=== PATIENT | female | born 1985 | race African-American/Black ===

== ENCOUNTER 2017-12-30 22:25 | Emergency (ER) | payer SELFPAY ==
[~2017-12-30] VITALS: Ht 177.8 cm; Wt 150.4 kg
[~2017-12-30 22:25] MED LIST: AMOXICILLIN500 MG PO; AMOXIL500 MG OR; AUGMENTIN875TAB OR; BACTRIM DS1 TAB PO; DOXYCYCL HYC100 M4 PO; FLEXERIL OR; FLEXERIL10 MG PO; HYDROCO/APAP1 TA9 PO; LORTAB 10 PO; NAPROSYN500 MG PO; NO MEDS; PROVENTIL IN; SUDAFED30 MG OR; ULTRAM50 M1 OR
[2017-12-30] MEDS ORDERED: GENTAMICIN0.3 % OU (23:34)
[2017-12-30 23:41] VITALS: BP 148/91
== END 2017-12-30 23:49 | disposition home or self-care (01) | DRG 125 ==
LOC: ED 22:25
DX: H10.9 Unspecified conjunctivitis (principal); F17.290 Nicotine dependence, other tobacco product, uncomplicated; J45.909 Unspecified asthma, uncomplicated

== ENCOUNTER 2019-05-20 06:03 | Emergency (ER) | payer SELFPAY ==
[~2019-05-20] VITALS: Ht 177.8 cm; Wt 141.4 kg
[~2019-05-20 06:03] MED LIST changes: +GENTAMICIN0.3 % OU
[2019-05-20] MEDS ORDERED: ZITHROMAX250 MG PO (06:28)
[2019-05-20 06:46] VITALS: BP 187/88
== END 2019-05-20 06:39 | disposition home or self-care (01) | DRG 203 ==
LOC: ED 06:03
DX: J20.9 Acute bronchitis, unspecified (principal); J02.9 Acute pharyngitis, unspecified; R05 Cough; F17.290 Nicotine dependence, other tobacco product, uncomplicated; R09.81 Nasal congestion

== ENCOUNTER 2020-11-12 21:05 | Emergency (ER) | payer SELFPAY ==
[~2020-11-12] VITALS: Ht 177.8 cm; Wt 144.0 kg
[~2020-11-12 21:05] MED LIST changes: +ZITHROMAX250 MG PO
[2020-11-12] MEDS ORDERED: OPCON-A OD (21:54)
[2020-11-12 22:25] VITALS: BP 144/87
== END 2020-11-12 22:25 | disposition home or self-care (01) | DRG 125 ==
LOC: ED 21:05
DX: S05.11XA Contusion of eyeball and orbital tissues, right eye, initial encounter (principal); H54.61 Unqualified visual loss, right eye, normal vision left eye; J45.909 Unspecified asthma, uncomplicated; F17.200 Nicotine dependence, unspecified, uncomplicated; Y04.2XXA Assault by strike against or bumped into by another person, initial encounter

== ENCOUNTER 2021-02-17 12:53 | Emergency (ER) | payer SELFPAY ==
[~2021-02-17] VITALS: Ht 177.8 cm; Wt 141.3 kg
[~2021-02-17 12:53] MED LIST changes: +OPCON-A OD
[2021-02-17 14:59] VITALS: BP 149/87
[2021-02-17] MEDS ORDERED: ALBUTEROL108 MCG/AC PO (15:02)
[2021-02-17] MEDS ORDERED: TESSALON PERLE100 MG PO (15:02)
== END 2021-02-17 15:10 | disposition home or self-care (01) | DRG 153 ==
LOC: ED 12:53
DX: J06.9 Acute upper respiratory infection, unspecified (principal); J45.909 Unspecified asthma, uncomplicated; F17.200 Nicotine dependence, unspecified, uncomplicated; Z20.822 Contact with and (suspected) exposure to COVID-19

== ENCOUNTER 2021-03-05 13:17 | Emergency (ER) | payer SELFPAY ==
[~2021-03-05] VITALS: Ht 177.8 cm; Wt 144.5 kg
[~2021-03-05 13:17] MED LIST changes: +ALBUTEROL108 MCG/AC PO; +TESSALON PERLE100 MG PO
[2021-03-05 14:08] LABS: HEMATOCRIT 37.8 % (37.0-47.0); IMMATURE GRANULOCYTES 0.4 % (0.0-5.0); MEAN CELL VOLUME 79.7 fL CALC (80.0-100.0); MEAN CORPUSCULAR HGB 23.2 pG CALC (26.0-32.0); MEAN CORPUSCULAR HGB CONC 29.1 g/dL CAL (32.0-36.0); NEUT# 4.98 thou/uL (2.00-7.15); RED BLOOD COUNT 4.74 mill/uL (4.20-5.60); RED CELL DISTRI WIDTH 16.5 % (11.5-15.5)
[2021-03-05 14:09] LABS: URINE BILIRUBIN - DIPSTICK NEGATIVE (NEGATIVE); URINE BLOOD DIPSTICK LARGE (NEGATIVE); URINE COLOR YELLOW; URINE GLUCOSE - DIPSTICK NEGATIVE (NEGATIVE); URINE KETONE NEGATIVE (NEGATIVE); URINE PH 5.5 (4.5-8.0); URINE PROTEIN - DIPSTICK 30 mg/dL (NEG-TRACE); URINE SPECIFIC GRAVITY >=1.030; URINE UROBILINOGEN - DIPSTICK 0.2 E.U./dL (0.2)
[2021-03-05 14:16] LABS: URINE LEUK ESTERASE SMALL (NEGATIVE); URINE NITRITE - DIPSTICK NEGATIVE (Negative)
[2021-03-05 14:17] LABS: URINE BACTERIA FEW hpf; URINE EPITHELIAL CELLS MODERATE EPI/hpf (0-FEW); URINE MUCUS MODERATE hpf (NONE-FEW); URINE RBC 25-50 RBC/hpf (0-5)
[2021-03-05 14:24] LABS: ALBUMIN 3.9 g/dL (3.2-5.0); ALKALINE PHOSPHATASE 88 u/l (38-126); ANION GAP 10 (6-22 (CALC)); BILIRUBIN, TOTAL 0.6 mg/dL (0.0-1.4); BUN 11 mg/dL (7-17); BUN/CREATININE RATIO 14 (12-20 (CALC)); CARBON DIOXIDE 24 mmol/l (22-30); CHLORIDE 107 mmol/l (95-108); CREATININE 0.8 mg/dL (0.5-1.0); GFR > 60 ML/MIN (>=60 (CALC)); GFR FOR AFR.AMER. > 60 ML/MIN (>=60 (CALC)); POTASSIUM 4.2 mmol/l (3.5-5.1); SGOT/AST 32 u/l (14-36); SODIUM 137 mmol/l (137-146); TOTAL PROTEIN 8.1 g/dL (6.3-8.2)
[2021-03-05] MEDS ORDERED: NEBULIZE1 IN (15:16)
[2021-03-05] MEDS ORDERED: ALBUTEROL SULFA0.51 IN (15:16)
[2021-03-05] MEDS ORDERED: MEDDOSEPAK PO (15:16)
[2021-03-05 15:22] VITALS: BP 125/74
== END 2021-03-05 15:29 | disposition home or self-care (01) | DRG 153 ==
LOC: ED 13:17
DX: J06.9 Acute upper respiratory infection, unspecified (principal); J45.909 Unspecified asthma, uncomplicated; F17.290 Nicotine dependence, other tobacco product, uncomplicated; Z20.822 Contact with and (suspected) exposure to COVID-19

== ENCOUNTER 2021-07-16 13:53 | Emergency (ER) | payer BC, OTHER ==
[~2021-07-16] VITALS: Ht 177.8 cm; Wt 138.3 kg
[~2021-07-16 13:53] MED LIST changes: +ALBUTEROL SULFA0.51 IN; +MEDDOSEPAK PO; +NEBULIZE1 IN
[2021-07-16] MEDS ORDERED: FEROSUL325 MG PO (14:52)
[2021-07-16] MEDS ORDERED: ALBUTEROL108 MCG/AC PO (14:53)
[2021-07-16 16:30] VITALS: BP 149/74
== END 2021-07-16 16:30 | disposition home or self-care (01) | DRG 605 ==
LOC: ED 13:53
DX: S40.011A Contusion of right shoulder, initial encounter (principal); J45.909 Unspecified asthma, uncomplicated; F17.200 Nicotine dependence, unspecified, uncomplicated; W18.2XXA Fall in (into) shower or empty bathtub, initial encounter; Y93.E1 Activity, personal bathing and showering; Y92.002 Bathroom of unspecified non-institutional (private) residence as the place of occurrence of the external cause; Z98.890 Other specified postprocedural states

== ENCOUNTER 2021-08-31 02:28 | Emergency (ER) | payer BC, OTHER ==
[~2021-08-31] VITALS: Ht 177.8 cm; Wt 138.0 kg
[~2021-08-31 02:28] MED LIST changes: +FEROSUL325 MG PO
[2021-08-31] MEDS ORDERED: CORTISPORIN OTI10 M2 AS (03:46)
== END 2021-08-31 04:05 | disposition home or self-care (01) | DRG 156 ==
LOC: ED 02:28
PROC: 09C4XZZ Extirpation of Matter from Left External Auditory Canal, External Approach (ICD-10-PCS; principal; 2021-08-31)
DX: T16.2XXA Foreign body in left ear, initial encounter (principal); J45.909 Unspecified asthma, uncomplicated; F17.200 Nicotine dependence, unspecified, uncomplicated; X58.XXXA Exposure to other specified factors, initial encounter

== ENCOUNTER 2021-12-05 22:18 | Emergency (ER) | payer BC, OTHER ==
[~2021-12-05] VITALS: Ht 177.8 cm; Wt 139.0 kg
[~2021-12-05 22:18] MED LIST changes: +CORTISPORIN OTI10 M2 AS
[2021-12-05 22:35] VITALS: BP 178/88
[2021-12-05] MEDS ORDERED: DUREZOL0.05 % OP (22:45)
[2021-12-05] MEDS ORDERED: ALBUTERO2 XX (22:45)
[2021-12-05] MEDS ORDERED: SIMBRINZA1 SUS (22:46)
[2021-12-05] MEDS ORDERED: CIPROFLOXACN0.3 % OP (22:46)
[2021-12-05 23:05] VITALS: BP 169/89
[2021-12-05 23:16] LABS: IMMATURE GRANULOCYTES 0.2 % (0.0-5.0); MEAN CELL VOLUME 84.1 fL CALC (80.0-100.0); MEAN CORPUSCULAR HGB 24.5 pG CALC (26.0-32.0); MEAN CORPUSCULAR HGB CONC 29.1 g/dL CAL (32.0-36.0); NEUT# 7.65 thou/uL (2.00-7.15); RED BLOOD COUNT 3.47 mill/uL (4.20-5.60); RED CELL DISTRI WIDTH 14.7 % (11.5-15.5)
[2021-12-05 23:18] LABS: URINE BILIRUBIN - DIPSTICK NEGATIVE (NEGATIVE); URINE BLOOD DIPSTICK LARGE (NEGATIVE); URINE COLOR YELLOW; URINE GLUCOSE - DIPSTICK NEGATIVE (NEGATIVE); URINE KETONE NEGATIVE (NEGATIVE); URINE LEUK ESTERASE NEGATIVE (NEGATIVE); URINE PH 5.5 (4.5-8.0); URINE PROTEIN - DIPSTICK NEGATIVE (NEG-TRACE); URINE SPECIFIC GRAVITY >=1.030; URINE UROBILINOGEN - DIPSTICK 0.2 E.U./dL (0.2)
[2021-12-05 23:22] LABS: URINE NITRITE - DIPSTICK NEGATIVE (Negative)
[2021-12-05 23:28] LABS: HEMATOCRIT 29.2 % (37.0-47.0); HEMOGLOBIN 8.5 g/dl (12.0-16.0)
[2021-12-05 23:30] VITALS: BP 174/103
[2021-12-05 23:34] LABS: ALBUMIN 3.5 g/dL (3.2-5.0); ALKALINE PHOSPHATASE 76 u/l (38-126); ANION GAP 13 (6-22 (CALC)); BUN 11 mg/dL (7-17); BUN/CREATININE RATIO 14 (12-20 (CALC)); CARBON DIOXIDE 22 mmol/l (22-30); CHLORIDE 111 mmol/l (95-108); CREATININE 0.8 mg/dL (0.5-1.0); GFR > 60 ML/MIN (>=60 (CALC)); GFR FOR AFR.AMER. > 60 ML/MIN (>=60 (CALC)); SGOT/AST 34 u/l (14-36); SODIUM 142 mmol/l (137-146); TOTAL PROTEIN 6.7 g/dL (6.3-8.2)
[2021-12-05 23:44] LABS: URINE CALCIUM OXALATE CRYSTALS MANY lpf; URINE MUCUS FEW hpf (NONE-FEW); URINE SQUAMOUS EPITHELIAL CELL FEW EPI/hpf (0-FEW)
[2021-12-05 23:45] LABS: BILIRUBIN, TOTAL 0.2 mg/dL (0.0-1.4)
[2021-12-06] VITALS: BP 150/74
[2021-12-06 00:05] LABS: TSH, 3RD GENERATION 1.19 uIU/mL (0.47 - 4.68)
[2021-12-06] MEDS ORDERED: CHROMAGEN1 CAP PO (00:29)
[2021-12-06 00:30] VITALS: BP 169/109
[2021-12-06 00:34] VITALS: BP 169/109
== END 2021-12-06 00:41 | disposition home or self-care (01) | DRG 812 ==
LOC: ED 22:18
PROVIDERS: Family Medicine
DX: D50.0 Iron deficiency anemia secondary to blood loss (chronic) (principal); J45.909 Unspecified asthma, uncomplicated; F17.200 Nicotine dependence, unspecified, uncomplicated; Z20.822 Contact with and (suspected) exposure to COVID-19

== ENCOUNTER 2022-01-09 01:54 | Emergency (ER) | payer OTHER, BC ==
[~2022-01-09] VITALS: Ht 177.8 cm; Wt 140.0 kg
[~2022-01-09 01:54] MED LIST changes: +ALBUTERO2 XX; +CHROMAGEN1 CAP PO; +CIPROFLOXACN0.3 % OP; +DUREZOL0.05 % OP; +SIMBRINZA1 SUS
[2022-01-09] MEDS ORDERED: NAPROXEN500 MG PO (03:17)
[2022-01-09 03:32] VITALS: BP 156/84
== END 2022-01-09 03:48 | disposition home or self-care (01) | DRG 563 ==
LOC: ED 01:54
DX: S83.012A Lateral subluxation of left patella, initial encounter (principal); S80.02XA Contusion of left knee, initial encounter; S70.02XA Contusion of left hip, initial encounter; S90.02XA Contusion of left ankle, initial encounter; J45.909 Unspecified asthma, uncomplicated; F17.200 Nicotine dependence, unspecified, uncomplicated; V03.90XA Pedestrian on foot injured in collision with car, pick-up truck or van, unspecified whether traffic or nontraffic accident, initial encounter
CPT/HCPCS: L1830

== ENCOUNTER 2022-01-11 11:30 | Emergency (ER) | payer OTHER, BC ==
[~2022-01-11] VITALS: Ht 177.8 cm; Wt 141.0 kg
[~2022-01-11 11:30] MED LIST changes: +NAPROXEN500 MG PO
[2022-01-11 11:45] VITALS: BP 142/85
[2022-01-11 12:35] LABS: HEMATOCRIT 30.2 % (37.0-47.0); HEMOGLOBIN 8.5 g/dl (12.0-16.0); MEAN CELL VOLUME 79.5 fL CALC (80.0-100.0); MEAN CORPUSCULAR HGB 22.4 pG CALC (26.0-32.0); MEAN CORPUSCULAR HGB CONC 28.1 g/dL CAL (32.0-36.0); NEUT# 7.13 thou/uL (2.00-7.15); RED BLOOD COUNT 3.8 mill/uL (4.20-5.60)
[2022-01-11 12:37] LABS: URINE BILIRUBIN - DIPSTICK NEGATIVE (NEGATIVE); URINE BLOOD DIPSTICK MODERATE (NEGATIVE); URINE COLOR YELLOW; URINE GLUCOSE - DIPSTICK NEGATIVE (NEGATIVE); URINE KETONE NEGATIVE (NEGATIVE); URINE LEUK ESTERASE NEGATIVE (NEGATIVE); URINE PROTEIN - DIPSTICK NEGATIVE (NEG-TRACE); URINE SPECIFIC GRAVITY >=1.030; URINE UROBILINOGEN - DIPSTICK 0.2 E.U./dL (0.2)
[2022-01-11 12:38] LABS: URINE NITRITE - DIPSTICK NEGATIVE (Negative)
[2022-01-11 12:43] LABS: URINE SQUAMOUS EPITHELIAL CELL MANY EPI/hpf (0-FEW)
[2022-01-11 12:52] LABS: IMMATURE GRANULOCYTES 0.2 % (0.0-5.0)
[2022-01-11 12:56] LABS: ALBUMIN 3.5 g/dL (3.2-5.0); ALKALINE PHOSPHATASE 72 u/l (38-126); ANION GAP 7 (6-22 (CALC)); BUN 9 mg/dL (7-17); BUN/CREATININE RATIO 11 (12-20 (CALC)); CARBON DIOXIDE 25 mmol/l (22-30); CHLORIDE 111 mmol/l (95-108); CREATININE 0.8 mg/dL (0.5-1.0); GFR > 60 ML/MIN (>=60 (CALC)); GFR FOR AFR.AMER. > 60 ML/MIN (>=60 (CALC)); POTASSIUM 4.1 mmol/l (3.5-5.1); SGOT/AST 23 u/l (14-36); SODIUM 139 mmol/l (137-146); TOTAL PROTEIN 6.8 g/dL (6.3-8.2)
[2022-01-11 12:57] LABS: BILIRUBIN, TOTAL 0.3 mg/dL (0.0-1.4)
[2022-01-11] MEDS ORDERED: FLEXERIL5 M1 PO (14:50)
== END 2022-01-11 15:00 | disposition home or self-care (01) | DRG 605 ==
LOC: ED 11:30
PROVIDERS: Nurse Practitioner
DX: S40.012A Contusion of left shoulder, initial encounter (principal); R10.12 Left upper quadrant pain; R10.32 Left lower quadrant pain; J45.909 Unspecified asthma, uncomplicated; V03.00XA Pedestrian on foot injured in collision with car, pick-up truck or van in nontraffic accident, initial encounter; Y92.481 Parking lot as the place of occurrence of the external cause
CPT/HCPCS: Q9967

== ENCOUNTER 2022-08-22 21:34 | Emergency (ER) | payer BC, OTHER ==
[~2022-08-22] VITALS: Ht 177.8 cm; Wt 125.0 kg
[~2022-08-22 21:34] MED LIST changes: +FLEXERIL5 M1 PO
[2022-08-22] MEDS ORDERED: MULTI VIT PO (22:06)
[2022-08-22] MEDS ORDERED: [UNRECOGNIZED DRUG - OTHER] EX (22:07)
[2022-08-22] MEDS ORDERED: [UNRECOGNIZED DRUG - OTHER] (22:07)
[2022-08-22] MEDS ORDERED: [UNRECOGNIZED DRUG - OTHER] (22:08)
[2022-08-23] MEDS ORDERED: DIPHENHYDRAM50 M2 PO (00:57)
[2022-08-23] MEDS ORDERED: PEPCID20 MG PO (00:57)
[2022-08-23] MEDS ORDERED: MEDDOSEPAK PO (00:57)
[2022-08-23 01:28] VITALS: BP 122/59
== END 2022-08-23 01:28 | disposition home or self-care (01) | DRG 607 ==
LOC: ED 21:34
DX: L50.0 Allergic urticaria (principal)